=== PATIENT | male | born 1960 | race African-American/Black ===

== ENCOUNTER 2022-09-12 02:55 | Inpatient (IN) ==
[2022-09-12] MEDS ORDERED: hydrALAZINE 20 MG/1 ML VIAL IV STA (03:37)
[2022-09-12 03:42] LABS: PT Patient Result 11.4 SECS (10.1-12.1); Partial Thromboplastin Time 87.7 SECS (23.7-32.9)
[2022-09-12 03:50] LABS: Albumin 4.3 G/DL (3.4-5.0); Bilirubin,Total 0.5 MG/DL (0.20-1.00); Calcium 9.3 MG/DL (8.5-10.1); Osmolality,Calculated 271.8 MOS/KG (273-304); Potassium 4.1 MMOL/L (3.5-5.1); Total Protein 7.5 G/DL (6.4-8.2)
[2022-09-12] MEDS ORDERED: NITROGLYCERIN SL 0.4 MG TABLET SL STA (03:55)
[2022-09-12 04:11] LABS: Basophils # 0.1 10*3/uL (0.0-0.2); Basophils % 0.8 % (0.0-0.8); Eosinophils # 0.2 10*3/uL (0.0-0.87); Eosinophils % 2.1 % (0.00-10.9); Hematocrit 42.6 VOL% (42.0-52.0); Hemoglobin 14.4 GM/DL (14.0-18.0); Immature Granulocytes % 0.5 %; Immature Granulocytes Absolute 0.04 #; Lymphocytes # 2.2 10*3/uL (1.4-4.0); Lymphocytes % 27.7 % (21.2-54.2); Mean Corpuscular HGB Conc 33.8 GM/DL (32-36); Mean Corpuscular Volume 93.6 FL (87-102); Mean Platelet Volume 9.8 FL (9.6-12.0); Monocytes # 0.4 10*3/uL (0.11-0.8); Monocytes % 5.7 % (1.7-12.7); Neutrophils % 63.2 % (38.7-73.9); Platelet Count 206 T/CUMM (130-400); Red Blood Count 4.55 MC/CUMM (3.8-5.5); Red Cell Distribution Width 12.8 % (9.3-17.3); White Blood Count 7.77 T/CUMM (4-12)
[2022-09-12] MEDS ORDERED: MORPHINE 2 MG/1 ML SYRINGE IV PRN (04:58)
[2022-09-12] MEDS ORDERED: ACETAMINOPHEN 325 MG TABLET PO PRN (04:58)
[2022-09-12] MEDS ORDERED: hydrALAZINE 20 MG/1 ML VIAL IV PRN (04:58)
[2022-09-12] MEDS ORDERED: ONDANSETRON 4 MG/2 ML VIAL IV PRN (04:58)
[2022-09-12] MEDS ORDERED: NICOTINE 21 MG/24 HR PATCH TRANSDERM PRN (04:58)
[2022-09-12] MEDS ORDERED: LORazepam 2 MG/1 ML VIAL IV PRN (05:03)
[2022-09-12] MEDS ORDERED: HEPARIN DRIP 25,000 UNITS/500 ML PREMIX IV SCH (05:30)
[2022-09-12] MEDS ORDERED: DIAZEPAM 5 MG TABLET PO ONE (07:28)
[2022-09-12] MEDS ORDERED: diphenhydrAMINE CAP 50 MG CAPSULE PO ONE (07:28)
[2022-09-12] MEDS ORDERED: NITROGLYCERIN SL 0.4 MG TABLET SL PRN (07:30)
[2022-09-12] MEDS ORDERED: HEPARIN/NACL 0.9% 2 UNITS/ML 2,000 UNIT/1,000 ML BAG IV ONE (08:04)
[2022-09-12] MEDS: SODIUM CHLORIDE 0.45% 1,000 ML IV SCH ×3 (08:24→20:46)
[2022-09-12] MEDS ORDERED: fentaNYL 100 MCG/2 ML VIAL ONE (08:36)
[2022-09-12] MEDS ORDERED: MIDAZOLAM 2 MG/2 ML VIAL ONE (08:36)
[2022-09-12] MEDS ORDERED: NITROGLYCERIN DRIP 50 MG/250 ML BOTTLE IV ONE (08:37)
[2022-09-12] MEDS ORDERED: VERAPAMIL 5 MG/2 ML VIAL ONE (08:38)
[2022-09-12] MEDS ORDERED: HEPARIN 5,000 UNIT/1 ML VIAL ONE (08:57)
[2022-09-12] MEDS ORDERED: ATORVASTATIN 40 MG TABLET PO SCH (09:00)
[2022-09-12] MEDS ORDERED: ATORVASTATIN 10 MG TABLET PO SCH (09:00)
[2022-09-12] MEDS ORDERED: HEPARIN/NACL 0.9% 2 UNITS/ML 1,000 UNIT/500 ML BAG IV ONE (09:10)
[2022-09-12] MEDS ORDERED: CLOPIDOGREL 300 MG TABLET ONE (09:39)
[2022-09-12] MEDS: MULTIVITAMIN (CENTRUM) TABLET PO SCH (11:04)
[2022-09-12] MEDS: lisinopriL 10 MG TABLET PO SCH (11:04)
[2022-09-12] MEDS: PANTOPRAZOLE 40 MG TABLET PO SCH (11:05)
[2022-09-12] MEDS: amLODIPine 10 MG TABLET PO SCH (11:05)
[2022-09-12] MEDS: ASPIRIN EC 81 MG TABLET PO SCH (11:05)
[2022-09-12] MEDS: CLOPIDOGREL 75 MG TABLET PO SCH (11:05)
[2022-09-12] MEDS: THIAMINE 100 MG TABLET PO SCH (11:05)
[2022-09-12] MEDS: METOPROLOL SUCCINATE XL 25 MG TABLET PO SCH (11:05)
[2022-09-12] MEDS: FOLIC ACID 1 MG TABLET PO SCH (11:05)
[2022-09-13] MEDS: SODIUM CHLORIDE 0.45% 1,000 ML IV SCH ×3 (00:07→10:33)
[2022-09-13 04:50] LABS: Basophils % 0.6 % (0.0-0.8); Eosinophils # 0.1 10*3/uL (0.0-0.87); Eosinophils % 1.7 % (0.00-10.9); Hematocrit 40.3 VOL% (42.0-52.0); Hemoglobin 13.7 GM/DL (14.0-18.0); Immature Granulocytes % 0.5 %; Immature Granulocytes Absolute 0.03 #; Lymphocytes # 1.6 10*3/uL (1.4-4.0); Lymphocytes % 25.4 % (21.2-54.2); Mean Platelet Volume 10.9 FL (9.6-12.0); Monocytes # 0.5 10*3/uL (0.11-0.8); Monocytes % 7.8 % (1.7-12.7); Platelet Count 186 T/CUMM (130-400); White Blood Count 6.29 T/CUMM (4-12)
[2022-09-13 05:10] LABS: Calcium 8.9 MG/DL (8.5-10.1); Osmolality,Calculated 274.5 MOS/KG (273-304)
[2022-09-13 05:11] LABS: Calcium 9.2 MG/DL (8.5-10.1); Osmolality,Calculated 276.4 MOS/KG (273-304); Potassium 4.3 MMOL/L (3.5-5.1)
[2022-09-13 07:47] VITALS: BP 138/70
[2022-09-13] MEDS ORDERED: ATORVASTATIN 40 MG TABLET PO SCH (09:00)
[2022-09-13] MEDS: MULTIVITAMIN (CENTRUM) TABLET PO SCH (10:15)
[2022-09-13] MEDS: ASPIRIN EC 81 MG TABLET PO SCH (10:17)
[2022-09-13] MEDS: FOLIC ACID 1 MG TABLET PO SCH (10:21)
[2022-09-13] MEDS: amLODIPine 10 MG TABLET PO SCH (10:22)
[2022-09-13] MEDS: CLOPIDOGREL 75 MG TABLET PO SCH (10:24)
[2022-09-13] MEDS: lisinopriL 10 MG TABLET PO SCH (10:24)
[2022-09-13] MEDS: PANTOPRAZOLE 40 MG TABLET PO SCH (10:24)
[2022-09-13] MEDS: THIAMINE 100 MG TABLET PO SCH (10:25)
[2022-09-13] MEDS: METOPROLOL SUCCINATE XL 25 MG TABLET PO SCH (10:25)
== END 2022-09-13 11:55 | disposition home or self-care (01) | DRG 174 ==
LOC: N.ED 02:55 → N.EDINP 04:58 → N.TELES 05:15
PROVIDERS: ADMIT Family Medicine; ATTEND Family Medicine
PROC: CLCCHCL (ICD-10-PCS; 2022-09-12 08:45)